=== PATIENT | female | born 1940 | race Caucasian/White ===

== ENCOUNTER → 2020-08-10 13:49 | Outpatient (CLI) | payer MEDICARE, OTHER, SELFPAY ==
[2020-08-10] MEDS: COVID-19 VACC #1, MRNA(MOD) 100 MCG/0.5 ML VIAL IM (14:08)
== END ==
PROVIDERS: Visit Provider Internal Medicine
DX: Z23 Encounter for immunization (principal)
CPT/HCPCS: 0011A; 91301

== ENCOUNTER → 2020-09-07 12:40 | Outpatient (CLI) | payer MEDICARE, OTHER, SELFPAY ==
[2020-09-07] MEDS: COVID-19 VACC #2, MRNA(MOD) 100 MCG/0.5 ML VIAL IM (12:48)
== END ==
PROVIDERS: Visit Provider Internal Medicine
DX: Z23 Encounter for immunization (principal)
CPT/HCPCS: 0012A; 91301

== ENCOUNTER 2021-06-08 10:50 | Emergency (ER) | payer MEDICARE, OTHER, SELFPAY ==
[2021-06-08] VITALS (27 sets, daily range): BP systolic 165–205; BP diastolic 77–105; PULSE 72–93; RESP 14–22; TEMP 36.4; O2SAT 90–99; BMI 28.3
--- NOTE | 2021-06-08 11:03 | DI.RAD.S_ITS ---
PROCEDURE: XR ANKLE LT 2V INDICATIONS: left ankle deformity TECHNIQUE: 2 views of the ankle were acquired. COMPARISON: [facility], , XR TIBIA FIBULA LT 2V, 06/08/2021, 11:07. FINDINGS: Bones: There is a prominently displaced, comminuted distal fibular fracture seen. There is a prominently displaced posterior malleolar fracture. An apparent impacted medial malleolar fracture can be seen. The talus is dislocated posteriorly and laterally in relation to the distal tibia. The talar dome itself demonstrates no ct abnormality. Generalized degenerative changes are seen, which are worst along the Lisfranc joint. Soft tissues: Associated soft tissue swelling is seen. IMPRESSION: Trimalleolar ankle fracture/dislocation. If it would be helpful for clinical management decision making in this patient with this given history, please consider a dedicated ankle CT for further evaluation. Dictated by: Ochoa Lake M.D. on 06/08/2021 at 10:32 Approved by: Ochoa Lake M.D. on 06/08/2021 at 10:33
--- NOTE | 2021-06-08 11:03 | DI.RAD.S_ITS ---
PROCEDURE: XR TIBIA FIBULA LT 2V INDICATIONS: left leg deformity TECHNIQUE: 2 views of the tibia and fibula were acquired. COMPARISON: [facility], CR, XR ANKLE LT 2V, 06/08/2021, 11:07. FINDINGS: Bones: There is a prominently displaced distal fibular fracture with comminution. Mild widening of the syndesmosis can be seen. There is a prominently displaced posterior malleolar fracture. An apparent impacted fracture of the medial malleolus can be seen. The talus is dislocated posteriorly and laterally in relation to the distal tibia. Soft tissues: Associated soft tissue swelling is seen distally. IMPRESSION: Trimalleolar fracture with dislocation. Dictated by: Ochoa Lake M.D. on 06/08/2021 at 10:30 Approved by: Ochoa Lake M.D. on 06/08/2021 at 10:32
--- NOTE | 2021-06-08 11:05 | ED.LOWEXIN ---
HPI - Extremity Injury (Lower) General Chief Complaint: Extremity Injury, Lower Stated Complaint: Slip, trip and fall Time Seen by Provider: 06/08/21 10:56 Source: patient and EMS Mode of arrival: EMS Limitations: no limitations History of Present Illness HPI Narrative: 80-year-old female comes emergency department after a trip and fall. Patient was walking her dog when she slid down hill. She states all her weight went onto her left leg and she has pain and obvious deformity. She denies any numbness or tingling she can wiggle her toes. She denies any other injury she denies striking her head, no neck or back pain. No chest pain or shortness of breath. No nausea or vomiting. No other GI or urinary symptoms. She cannot move that leg otherwise it is too painful. 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 She denies any daily medications. No known drug allergies. She denies tobacco, alcohol or illicit. She was on the ground for about 30 minutes outside until another individual walking their dog saw her and called for assistance. She arrives via EMS splinted with fentanyl and Phenergan given EN route. Related Data Previous Rx's Medication Instructions Recorded oxycodone 5 mg tablet 5 mg PO Q6H PRN #20 tab 06/08/21 Allergies Allergy/AdvReac Type Severity Reaction Status Date / Time No Known Drug Allergies Allergy Verified 06/08/21 10:59 Review of Systems Review of Systems ROS Unobtainable: All systems reviewed & are unremarkable except as noted in HPI and below Exam Narrative Exam Narrative: GEN: well nourished, well appearing female, alert and oriented x 3, patient appears to be in mild distress. HEENT: Atraumatic, pupils are equal round reactive to light, extraocular movements are intact, nares are clear. Throat is clear. HEART: Regular rate and rhythm without murmur, clicks, rubs. LUNGS:Lungs clear to auscultation, no wheezes, rales, crackles, chest moves symmetrically ABD:bowel sounds normal, soft, non-tender, no guarding, rebound, rigidity, no masses noted, no hepatosplenomegaly, pelvic rock negative. MSCL: Patient has obvious deformity with her left foot rotated 45? externally and a right angle. Patient does have palpable pulse dorsalis. She has sensation to light touch throughout the entire dorsum of the foot and on the underside. She has flexion extension of the toes. Patient denies any other bony tenderness at the knee, thigh or hip. And her right lower extremity and upper extremities are nontender with normal joint movement and sensation. NEURO:CN 2-12 intact, sensation normal Initial Vital Signs Initial Vital Signs: Vital Signs Temperature 97.6 F 06/08/21 10:50 Pulse Rate 86 06/08/21 10:50 Respiratory Rate 18 06/08/21 10:50 Blood Pressure 194/91 H 06/08/21 10:50 Pulse Oximetry 96 06/08/21 10:50 Procedures Orthopedic Joint Reduction Joint #1: Time of procedure: 12:21 Time Out Performed: Yes Side: left Joint Reduction Location: ankle Analgesia: procedural sedation Technique used: traction/counter-traction and direct manipulation Post-reduction neuro exam: intact Post-reduction vascular: intact Post Reduction X-Ray Obtained: Yes Splint Applied: Yes Patient Tolerated Procedure: Well Orthopedic Splinting/Casting Injury #1: Time of procedure: 12:22 Side: left Lower Extremity Injury Location: ankle Lower Extremity Immobilizer: posterior splint and stirrup splint Post splinting neuro exam: intact Post splinting vascular exam: intact Placed by: Provider () Procedural Sedation Time of procedure: 12:20 Consent signed: Yes Time out performed: Yes Indication: fracture/dislocation reduction ASA Class: II Mallampati Airway Classification: Class II Time of Last PO Intake: 07:00 Preparation: vest tailor applied, pulse oximeter, capnometry used, supplemental O2 applied, reversal agents at bedside, suction/airway equipment at bedside and IV secured IV Propofol dose (mg): 50 ED Sedation Level: Moderate (Concious) Patient Tolerated Procedure: Well Complications: none Scores GCS [place] coma scale eye opening: Spontaneous [place] coma scale verbal response: Orientated [place] coma scale motor response: Obey commands [place] coma scale total score: 15 Course Orders Ordered: ED Orders 06/08/21 11:03 XR ankle LT 2V Stat XR tibia fibula LT 2V Stat 06/08/21 11:06 COVID19 -Nasal swab/Pre-Proc Stat 06/08/21 12:19 XR ankle LT min 3V Stat Discontinued Medications Morphine Sulfate (Morphine 4 Mg/Ml Inj) 4 mg IV NOW ONE Stop: 06/08/21 11:05 Last Admin: 06/08/21 11:22 Dose: 4 mg Documented by: SUZE Morphine Sulfate (Morphine 4 Mg/Ml Inj) 4 mg IV NOW ONE Stop: 06/08/21 12:50 Last Admin: 06/08/21 13:18 Dose: Not Given Documented by: MARGARITA Ondansetron HCl (Ondansetron 4 Mg/2 Ml Inj) 4 mg IV NOW ONE Stop: 06/08/21 11:05 Last Admin: 06/08/21 11:22 Dose: 4 mg Documented by: SUZE Oxycodone/Acetaminophen (Oxycodone/Acetaminophen 5/325 Tablet) 2 tab PO NOW ONE Stop: 06/08/21 13:19 Last Admin: 06/08/21 13:21 Dose: 2 tab Documented by: MARGARITA Propofol (Propofol 200 Mg/20 Ml Vial) 75 mg 1 mg/kg (75 mg) IV NOW ONE Stop: 06/08/21 11:56 Last Admin: 06/08/21 12:07 Dose: 50 mg Documented by: MARGARITA Reevaluation(s) Reevaluation #1: Patient continues to have pain states it is somewhat improved but still quite present. Post reduction. Consultations Consultation #1: Dr. Canada, orthopedic surgery. Plan for follow-up this week with the clinic. Reviewed patient has been sedated reduced placed in a posterior and sugar-tong splint with plan for nonweightbearing. Time: 12:25 Vital Signs Vital signs: Vital Signs - 8 hr 06/08/21 10:50 06/08/21 10:56 06/08/21 11:00 Temperature 97.6 F Pulse Rate 86 79 77 Respiratory Rate 18 Blood Pressure 194/91 H Pulse Oximetry 96 96 96 06/08/21 11:05 06/08/21 11:06 06/08/21 11:10 Temperature Pulse Rate 79 78 73 Respiratory Rate Blood Pressure 194/91 H Pulse Oximetry 96 96 95 06/08/21 11:15 06/08/21 11:20 06/08/21 11:23 Temperature Pulse Rate 75 77 77 Respiratory Rate Blood Pressure 191/86 H Pulse Oximetry 95 94 93 06/08/21 11:25 06/08/21 11:30 06/08/21 11:35 Temperature Pulse Rate 78 72 72 Respiratory Rate Blood Pressure 165/79 H Pulse Oximetry 94 92 91 06/08/21 11:40 06/08/21 11:45 06/08/21 11:50 Temperature Pulse Rate 72 75 78 Respiratory Rate 19 20 Blood Pressure 167/77 H 173/85 H Pulse Oximetry 90 L 93 98 06/08/21 11:55 06/08/21 12:00 06/08/21 12:05 Temperature Pulse Rate 72 76 93 H Respiratory Rate 14 17 15 Blood Pressure 173/81 H 186/82 H 176/105 H Pulse Oximetry 98 98 97 06/08/21 12:10 06/08/21 12:15 06/08/21 12:20 Temperature Pulse Rate 78 77 76 Respiratory Rate 14 22 17 Blood Pressure 176/84 H 194/88 H 186/89 H Pulse Oximetry 98 98 97 06/08/21 12:25 06/08/21 12:30 06/08/21 12:35 Temperature Pulse Rate 85 78 82 Respiratory Rate 19 16 Blood Pressure 205/95 H 194/90 H 167/99 H Pulse Oximetry 96 96 98 06/08/21 12:40 06/08/21 12:45 06/08/21 12:50 Temperature Pulse Rate 82 82 142 H Respiratory Rate 20 17 17 Blood Pressure 198/92 H 184/84 H 198/98 H Pulse Oximetry 96 97 97 MDM - Extremity Injury (Lower) Lab Data Labs: Lab Results 06/08/21 Range/Units 11:06 SARS-CoV-2 (PCR) Negative (Negative) Point of Care Testing Test Results Not applicable Imaging Data Extremity x-ray #1: Radiologist's Impression: [address] [address] XRay Report Signed Patient: Aileen Jauregui MR#: [id number] : 1940 Acct:[id number] Age/Sex: 80 / F Date of Service: 06/08/21 Loc: ED Accession Number: [id number] ?? Procedure: XR ankle LT 2V Ordering Provider: Nellie Gregorio D.O. PROCEDURE:? XR ANKLE LT 2V ? INDICATIONS:? left ankle deformity ? TECHNIQUE:? 2 views of the ankle were acquired.? ? COMPARISON:? [facility], CR, XR TIBIA FIBULA LT 2V, 06/08/2021, 11:07. ? FINDINGS:? ? Bones:? There is a prominently displaced, comminuted distal fibular fracture seen.? There is a prominently displaced posterior malleolar fracture.? An apparent impacted medial malleolar fracture can be seen. ? The talus is dislocated posteriorly and laterally in relation to the distal tibia. ? The talar dome itself demonstrates no tc abnormality.? ? Generalized degenerative changes are seen, which are worst along the Lisfranc joint. ? Soft tissues:? Associated soft tissue swelling is seen. ? ? IMPRESSION:? Trimalleolar ankle fracture/dislocation. ? If it would be helpful for clinical management decision making in this patient with this given history, please consider a dedicated ankle CT for further evaluation. ? Dictated by: Ochoa Lake M.D. on 06/08/2021 at 10:32 ? ? Approved by: Ochoa Lake M.D. on 06/08/2021 at 10:33?? Extremity x-ray #2: Radiologist's Impression: [address] [address] XRay Report Signed Patient: Aileen Jauregui MR#: [id number] : 1940 Acct:[id number] Age/Sex: 80 / F Date of Service: 06/08/21 Loc: ED Accession Number: [id number] ?? Procedure: XR tibia fibula LT 2V Ordering Provider: Nellie Gregorio D.O. PROCEDURE:? XR TIBIA FIBULA LT 2V ? INDICATIONS:? left leg deformity ? TECHNIQUE:? 2 views of the tibia and fibula were acquired.? ? COMPARISON:? [facility], [place], XR ANKLE LT 2V, 06/08/2021, 11:07. ? FINDINGS:? ? Bones:? There is a prominently displaced distal fibular fracture with comminution.? Mild widening of the syndesmosis can be seen.? There is a prominently displaced posterior malleolar fracture.? An apparent impacted fracture of the medial malleolus can be seen. ? The talus is dislocated posteriorly and laterally in relation to the distal tibia. ? Soft tissues:? Associated soft tissue swelling is seen distally. ? ? IMPRESSION:? Trimalleolar fracture with dislocation. ? ? Dictated by: Ochoa Lake M.D. on 06/08/2021 at 10:30 ? ? Approved by: Ochoa Lake M.D. on 06/08/2021 at 10:32?? Extremity x-ray #3: Radiologist's Impression: [address] [address] XRay Report Signed Patient: Aileen Jauregui MR#: [id number] : 1940 Acct:[id number] Age/Sex: 80 / F Date of Service: 06/08/21 Loc: ED Accession Number: [id number] ?? Procedure: XR ankle LT min 3V Ordering Provider: Nellie Gregorio D.O. PROCEDURE:? XR ANKLE LT MIN 3V ? INDICATIONS:? post reduc ? TECHNIQUE:? 3 views of the ankle were acquired.? ? COMPARISON:? [facility], CR, XR ANKLE LT 2V, 06/08/2021, 11:07. ? FINDINGS:? ? Bones:? On this post reduction view, there is improved anatomic alignment of the trimalleolar fracture.? A dislocation is no longer seen. ? The overlying casting material limits evaluation of fine detail. ? Degenerative changes are seen, which are worst along the Lisfranc joint.? Toe alignment abnormalities are seen.? ? Soft tissues:? Soft tissue swelling is seen. ? ? IMPRESSION:? Appropriate reduction, with improved anatomic alignment of the trimalleolar fracture. ? ? ? Dictated by: Ochoa Lake M.D. on 06/08/2021 at 11:30 ? ? Approved by: Ochoa Lake M.D. on 06/08/2021 at 11:31?? [facility] Narrative Medical decision making narrative: This is a 80-year-old female with slip and fall without other trauma. Patient had closed trimalleolar fracture with dislocation. Patient was neurovascularly intact pre and post reduction. Her films are significantly improved and she is much better alignment. Patient was placed in a splint by myself. She was given walker. P.o. pain medications as well as discussed that she can use her optimistic for wheelchair that she can borrow. Referral to Orthopedic surgery and the recommendations were given. All questions answered. Discharge Plan Departure Patient Disposition: Home Clinical Impression: Closed trimalleolar fracture, Dislocation of ankle, Fall Instructions: DI for Ankle Fracture Activity Restrictions/Additional Instructions: Follow-up with orthopedic surgery. Call for an appointment. They plan to see you this week. They are closed on Thursday. You may take Tylenol up to a 1000 mg every 8 hours. If in adequate you can add 1-2 tablets of narcotic pain medication every 6 hours. This medication can make you sleepy do not drive, perform hazardous activities or make any major decisions while taking it. This medication will make you constipated please take a stool softener once to twice daily until stools are soft and regular. Prescription sent to [facility] in [place]. Splint Care: Keep splint clean and dry. Elevated affected body part to decrease swelling. OK to use ice pack on the affected body part. Use for 15-20 minutes each time, for 5-6x per day. If you develop worsening pain, numbness, tingling, discoloration of the affected body part, loosen the splint by loosening the JEREMY wrap, and either see your doctor for an urgent re-assessment, or return to the Emergency Department. Return to the Emergency Department for any new or worsening symptoms. Prescriptions: New oxycodone 5 mg tablet 5 mg PO Q6H PRN (Reason: pain) Qty: 20 0RF Rx Instructions: You may take 1-2 tabs every 6 hours as needed for pain. Referrals: Chalo Canada MD [Physician] -
[2021-06-08] MEDS: MORPHINE 4 MG/ML INJ IV (11:22)
[2021-06-08] MEDS: ONDANSETRON 4 MG/2 ML INJ IV (11:22)
[2021-06-08 11:44] LABS: COVID19 -Nasal RAPID Negative (Negative)
[2021-06-08] MEDS: propofoL 200 MG/20 ML VIAL 75 MG IV (12:07)
--- NOTE | 2021-06-08 12:19 | DI.RAD.S_ITS ---
PROCEDURE: XR ANKLE LT MIN 3V INDICATIONS: post reduc TECHNIQUE: 3 views of the ankle were acquired. COMPARISON: [facility], , XR ANKLE LT 2V, 06/08/2021, 11:07. FINDINGS: Bones: On this post reduction view, there is improved anatomic alignment of the trimalleolar fracture. A dislocation is no longer seen. The overlying casting material limits evaluation of fine detail. Degenerative changes are seen, which are worst along the Lisfranc joint. Toe alignment abnormalities are seen. Soft tissues: Soft tissue swelling is seen. IMPRESSION: Appropriate reduction, with improved anatomic alignment of the trimalleolar fracture. Dictated by: Ochoa Lake M.D. on 06/08/2021 at 11:30 Approved by: Ochoa Lake M.D. on 06/08/2021 at 11:31
--- NOTE | 2021-06-08 12:36 | RT ---
At bedside for PRS for ankle. Pt rashard well, no distress noted and on 3 lpm nc with etco2 39-41. Bag mask unit at [facility] with suction on and functional. Released by Rn pt awake and on room air
[2021-06-08] MEDS: OXYCODONE/ACETAMINOPHEN 5/325 TABLET 2 TAB PO (13:21)
--- NOTE | 2021-06-08 15:11 | PC.NURSE ---
walker teaching and transfer instructions.
== END 2021-06-08 13:30 | disposition home or self-care (01) ==
PROVIDERS: Emergency Provider Emergency Medicine
DX: S82.852A Displaced trimalleolar fracture of left lower leg, initial encounter for closed fracture (principal); W01.0XXA Fall on same level from slipping, tripping and stumbling without subsequent striking against object, initial encounter; Z20.822 Contact with and (suspected) exposure to COVID-19; Y93.K1 Activity, walking an animal; Y92.828 Other wilderness area as the place of occurrence of the external cause
CPT/HCPCS: 29515; 36415; 73590; 73600; 73610; 87635; 99285; C9803; J2270; J2405; J2704

== ENCOUNTER 2021-06-11 09:37 | Emergency (ER) | payer MEDICARE, OTHER, SELFPAY ==
[2021-06-11 10:00] VITALS: BP 188/84; PULSE 80; RESP 16; O2SAT 96; BMI 28.2
--- NOTE | 2021-06-11 10:22 | ED_ITS ---
HPI - Extremity Injury (Lower) General Chief Complaint: Extremity Injury, Lower Stated Complaint: Twisted ankle Time Seen by Provider: 06/11/21 09:46 Source: patient and family Mode of arrival: Wheelchair History of Present Illness HPI Narrative: Patient is an 80-year-old female. She was seen here in the emergency department a couple days ago with a left ankle fracture. Was placed in a splint. Discharged home with follow-up with Orthopedics. Since that time she states that she continues to have discomfort. She feels like her lower extremity swelling. She has been taking the pain medication as directed. She is yet to follow-up with orthopedics. Has not contacted Orthopedics yet. She does not have a primary provider. She also feels like the splint is too high up the back of her leg causing her discomfort with bending her knee. Related Data Previous Rx's Medication Instructions Recorded oxycodone 5 mg tablet 5 mg PO Q6H PRN #20 tab 06/08/21 Allergies Allergy/AdvReac Type Severity Reaction Status Date / Time No Known Drug Allergies Allergy Verified 06/08/21 10:59 Review of Systems Constitutional Constitutional: Denies headache(s) ENT Ears, Nose, Mouth, and Throat: Denies headache(s) Cardiovascular Cardiovascular: Reports system reviewed and no additional complaints, except as documented Respiratory Respiratory: Reports system reviewed and no additional complaints, except as documented Gastrointestinal Gastrointestinal: Reports system reviewed and no additional complaints, except as documented Musculoskeletal Musculoskeletal: Reports system reviewed and no additional complaints, except as documented and Reports as per HPI Integumentary/Breasts Skin/Breast: Reports system reviewed and no additional complaints, except as documented Neurologic Neurologic: Denies headache(s) Hematologic/Lymphatic On Anticoagulants: No Patient History Medical History Closed trimalleolar fracture Social History Smoking Status: Never smoker Smoking Status: Never smoker Substance Use Type: does not use Exam Initial Vital Signs Initial Vital Signs: Vital Signs Pulse Rate 80 06/11/21 10:00 Respiratory Rate 16 06/11/21 10:00 Blood Pressure 188/84 H 06/11/21 10:00 Pulse Oximetry 96 06/11/21 10:00 HENMT Head: normal to inspection and normocephalic Resp Effort & Inspection: normal respiratory effort Cardio Rate: regular rate GI Inspection: normal to inspection Procedures Orthopedic Splinting/Casting Injury #1: Side: left Lower Extremity Injury Location: ankle Lower Extremity Immobilizer: posterior splint and stirrup splint Post splinting neuro exam: intact Post splinting vascular exam: intact Placed by: Provider Course Vital Signs Vital signs: Vital Signs - 8 hr 06/11/21 10:00 Pulse Rate 80 Respiratory Rate 16 Blood Pressure 188/84 H Pulse Oximetry 96 MDM - Extremity Injury (Lower) MDM Narrative Medical decision making narrative: The splint that was placed here initially in the emergency department was removed she states that the pressure and discomfort did improve somewhat. After. Time another splint was replaced. No further x-rays needed. Low suspicion for compartment syndrome based on her exam. It appears that the patient does have some difficulty navigating the healthcare system. She has [employer] insurance. Does not have a specific primary doctor. Has not followed up with Orthopedics. She was concerned she was not have to drive to [place] and to follow-up with orthopedics and she did want to do that. She was told that they do have a office here locally. Informed her that she needed to contact [facility] has she is assigned to a primary provider and she will most likely need a referral to go see orthopedics. No further workup needed emergency department. She was instructed to keep her foot elevated as this will help with the swelling. She has pain medication at home. Discharge Plan Departure Patient Disposition: Home Clinical Impression: Ankle fracture Instructions: How to Take Care of Your Splint Activity Restrictions/Additional Instructions: The splint that was placed today does need to stay on and stay clean and stay dry. You do need to treat it like a cast. You should not be walking on your left ankle because of the underlying fracture. Please use the information that you were given to contact [facility]. You are going to need a follow-up with Orthopedics and most likely will require surgery for definitive treatment of the injury. Return to the emergency department for any new or worsening symptoms. Prescriptions: No Action oxycodone 5 mg tablet 5 mg PO Q6H PRN (Reason: pain) Qty: 20 0RF Rx Instructions: You may take 1-2 tabs every 6 hours as needed for pain.
[2021-06-11 10:53] VITALS: PULSE 75; O2SAT 96
[2021-06-11 11:00] VITALS: PULSE 76; O2SAT 96
[2021-06-11 11:26] VITALS: PULSE 90; O2SAT 94
[2021-06-11 12:54] VITALS: BP 192/86; PULSE 93; O2SAT 94
== END 2021-06-11 12:54 | disposition home or self-care (01) ==
PROVIDERS: Emergency Provider Emergency Medicine
DX: S82.892A Other fracture of left lower leg, initial encounter for closed fracture (principal); X58.XXXA Exposure to other specified factors, initial encounter
CPT/HCPCS: 29505; 99282

== ENCOUNTER → 2021-06-13 13:18 | Outpatient (CLI) | payer MEDICARE, OTHER, SELFPAY ==
--- NOTE | 2021-06-13 | DI.CT.S_ITS ---
PROCEDURE: CT LE LT W CON INDICATIONS: Broken LEFT Ankle TECHNIQUE: Noncontrast 1-1.5 mm axial sections acquired from above the tibiotalar joint to the bottom of the calcaneus, with coronal and sagittal reformats. COMPARISON: [facility], CR, XR ANKLE LT MIN 3V, 06/08/2021, 12:15. FINDINGS: Image quality: Excellent. Bones: Trimalleolar fracture of the ankle with mild comminution of the proximal fibula and intra-articular bodies. No overt callus formation is appreciated. No substantial widening of the ankle mortise. At least moderate degenerative changes in the midfoot with fibrocystic change, osteophytosis, and joint space loss. Soft tissues: Diffuse soft tissue edema. Small tibiotalar joint effusion. Although suboptimally visualized, the Achilles tendon appears intact. IMPRESSION: Trimalleolar fracture of the ankle. Dictated by: Froylan Velazquez M.D. on 06/14/2021 at 8:43 Approved by: Froylan Velazquez M.D. on 06/14/2021 at 8:47
== END ==
PROVIDERS: Referring Provider Orthopaedic Surgery Foot and Ankle Surgery; Visit Provider Orthopaedic Surgery Foot and Ankle Surgery
DX: S82.852A Displaced trimalleolar fracture of left lower leg, initial encounter for closed fracture (principal); Z20.822 Contact with and (suspected) exposure to COVID-19; X58.XXXA Exposure to other specified factors, initial encounter
CPT/HCPCS: 73700; 87635; C9803

== ENCOUNTER → 2021-06-13 15:31 | Outpatient (CLI) | payer MEDICARE, OTHER, SELFPAY ==
[2021-06-13 15:52] LABS: COVID19 -Nasal RAPID Negative (Negative)
== END ==
PROVIDERS: Visit Provider Family Medicine Sleep Medicine
DX: Z20.822 Contact with and (suspected) exposure to COVID-19 (principal)
CPT/HCPCS: 87635

== ENCOUNTER 2021-06-15 08:45 | Observation (INO) | payer MEDICARE, OTHER, SELFPAY ==
[2021-06-14] VITALS (10 sets, daily range): BP systolic 133–181; BP diastolic 64–86; PULSE 74–97; RESP 13–21; TEMP 36.4–37.2; O2SAT 94–98; BMI 26.6
--- NOTE | 2021-06-14 07:31 | PM.PREOP ---
Pre-operative Note COVID-19 Criteria for continued procedure: Possibility delay results in more complex future surgery or treatment, Continuing or worsening of significant or severe pain, Deterioration of the patient's condition or overall health and Delay expected to result in less-positive ultimate med/surg outcome Interval Note History & Physical reviewed/Exam performed by Physician: Yes Changes to H&P: No
--- NOTE | 2021-06-14 07:36 | PM.HP.1 ---
History of Present Illness History of Present Illness Date Patient Seen: 06/14/21 Time Patient Seen: 07:20 Chief complaint: SDC Narrative: 80-year-old female slipped and fell 2 days ago resulting in a left ankle fracture dislocation. Patient was seen in the emergency room where the ankle was reduced she was placed into a splint. Patient denies any other injuries from fall. Patient History Medical History Closed trimalleolar fracture Surgical History History of mastectomy Family & Social History Tobacco & Substance use: Smoking Status Never smoker alcohol intake never Substance Use Type does not use Meds Home Medications and Allergies Home Medications Medication Instructions Recorded Confirmed Type oxycodone 5 mg tablet 5 mg PO Q6H PRN #20 tab 06/08/21 06/13/21 Rx Allergies Allergy/AdvReac Type Severity Reaction Status Date / Time No Known Drug Allergies Allergy Verified 06/08/21 10:59 Exam Vital Signs (past 8 hours): - 06/14/21 07:05 Temperature 98.6 F Pulse Rate 90 Respiratory Rate 16 Blood Pressure 181/86 H Pulse Oximetry 98 Oxygen Delivery Method Room Air Narrative Exam Narrative: Patient's left lower extremity is in a splint. No sign of any bruising or swelling around the knee. No sign of any instability to the knee. Normal range of motion. Nontender to palpation to the upper leg no pain or discomfort with range of motion the left hip. Right lower extremity is also free of any injuries or deformities. Full range of motion of the right lower extremity. Nontender to palpation throughout. Assessment & Plan Assessment & Plan narrative: 80-year-old female with a left ankle fracture dislocation involving the medial lateral and posterior malleolus. Based on the amount of displacement as well as the dislocation was something that will require surgical treatment. I went over the risk and limitations associated with operative versus non operative treatment. Also discussed risk limitations associated with the surgery. All the patient's questions and concerns were answered to her full satisfaction and a consent form was freely obtained. The risk, benefits, alternatives, possible complications, operative course, and postop outcomes were discussed. Complications including but not limiting to bleeding, infection, fracture, nerve injury, continued pain postoperatively or instability postoperatively were discussed in detail. Medical complications including but not limited to deep venous thrombosis event, anesthesia complications with excessive bleeding, vascular events or cardiac events and other possible complications were discussed in detail. Need for postoperative rehabilitation and anticipated hospital stay and clinical course were discussed in detail. Patient acknowledges understanding and elects to proceed with surgery. Time Spent With Patient Critical Care time: I spent a total of [] minutes of critical care time on this patient's care today; this time is exclusive of procedural time.
--- NOTE | 2021-06-14 08:33 | SUR.PREOP ---
Block start time 0810[] after time out . Monitoring initiated and maintained throughout procedure. Oxygen and medications given per anesthesiologist instructions.injection time 0820 Patient remained stable throughout procedure, no adverse reactions noted. Block end time [0828].
[2021-06-14] MEDS: CEFAZOLIN 2 GM/20 ML SYRINGE IV (08:46)
--- NOTE | 2021-06-14 09:10 | SUR.OPER ---
Supine on padded OR bed, head on pillow, arms secured on padded arm boards at <90 degrees abduction, legs uncrossed, safety belt at abdomen, tape over blanket over right lower leg, gel pad surrounding right heel. Left leg under control of surgeon. Bump under left hip during fixation of lateral portion of fracture.
[2021-06-14] MEDS: BUPIVACAINE 0.5% (PF) 30 ML, EPINEPHrine 0.15 MG INJ (10:32)
--- NOTE | 2021-06-14 11:11 | PM.OP.1 ---
Operative Date/Time/Diagnoses Date of procedure: 06/14/21 Time of procedure: 09:00 Pre-op diagnosis: Trimalleolar ankle fracture left, Post-op diagnosis: same Procedure & Clinicians Procedure: Open reduction internal fixation of the medial, lateral, and posterior malleolus. Open reduction internal fixation of the anterior lateral aspect of the distal tibia Same procedure as scheduled: Yes Indications: Fracture dislocation of the left ankle with multiple fracture fragments Surgeon: Chalo Pathak Yes if Unassisted: Yes Anesthesia Type: General and Peripheral nerve block Operative Notes Findings: Displaced intra-articular fracture involving the posterior malleolus. Minimally displaced fracture involving the medial malleolus. Displaced comminuted fracture involving the lateral malleolus was extension into the fibular shaft. Displaced fragment involving the anterior lateral aspect of the distal tibia. Unstable tibial talar joint. Closure Type: primary Applied: implant(s) (Arthrex 1/3 tubular plate, partially-threaded cannulated cancellous screw with washer, distal fibular plate 8 hole) Estimated Blood Loss (mL): 30 Tourniquet time (min): 115 Procedure in detail: On date of service, patient was met in the holding area where her operative site was signed and witnessed by the OR staff. Surgeries once again discussed with the patient and any remaining questions or concerns she had were answered fully. Patient was taken back to the operating theater. Placed on the operating table in a supine position. Great care was taken to ensure that all bony prominences were appropriately padded. Well-padded tourniquet was placed up along the left leg. Time-out was performed verifying patient's name, procedure, and operative site. Left leg was prepped and draped in normal sterile fashion. Esmarch was used to exsanguinate the limb and the tourniquet was turned up to 250 mm of mercury. The restarted with the medial aspect of the ankle. The posterior medial approach was performed. Incision was made mcfp between the posterior aspect of the medial malleolus and the Achilles tendon. Ten blade was used to incise the skin and fascial tissue. Electrocautery was used to achieve hemostasis. Pickups and Metzenbaum scissors were used to bluntly dissect down and till the posterior aspect of the medial S was visualized. Flexor hallucis longus and the rest of the tendons were retracted posteriorly given his good visualization of the posterior aspect of distal tibia. Patient had an intra-articular extension in this intra-articular fragment was reduced. Once this fragment as well as the rest of the posterior fragment was reduced a 1/3 tubular plate was placed and held provisionally. C-arm was brought in to verify overall reduction. We were able to use a 1/3 tubular plate to reduce and fixate the posterior malleolar fragment as well as provide fixation to the medial malleolar fragment. Screws were placed and x-rays were obtained. Once we were satisfied with the reduction and plate and screw placement the wound was copiously irrigated then closed in the layered fashion. Next, bump was placed underneath the left hip internally rotating the leg to give us good access to the lateral aspect of the ankle. Ten blade was used to incise through skin and fascial tissue. An incision was made starting at the tip of the distal fibula and extending proximally. Deep knife was used to continue sharp dissection down to the periosteum of the distal fibula. Periosteal tissue was dissected off the distal fibula giving us good visualization of the fracture. A curette was used to debride the fracture site removing any interposed soft tissue. Patient also had a fracture involving the anterior lateral aspect of the distal tibia. Then the fracture site was copiously irrigated. Next, 2 point reduction forceps were used to reduce the fracture. C-arm was brought in to verify reduction. Once we were satisfied with the reduction a plate was placed and held provisionally with a 2 point reduction forceps. Next, distal fibular plate was placed and held provisionally. This was then secured both proximal and distal to the fracture the combination of locking and nonlocking screws. The plate and screws provided strong overall fixation and stabilization of the fracture. X-rays were obtained verifying reduction of the lateral malleolus and extension into the fibular shaft. The ankle was stressed and there was no longer any widening of the mortise and the tip of the talar joint was now stabilized with fixation of both the medial posterior awl and lateral aspects of the ankle. We then turned our attention to the small fragment involving the anterior lateral aspect of the distal tibia. This was reduced and held with a K-wire. Next a partially-threaded cancellous screw with a washer was placed to provide fixation to this fragment. This provided secure fixation and final x-rays were obtained verifying good overall reduction of 4 different fracture sites as well as good overall reduction of the tibiotalar joint. The wound was then copiously irrigated. It was closed in layered fashion. Patient's leg was cleaned, dried, and dressed and a splint was placed. Patient was extubated and taken to the PACU in stable condition. Complications: none Post-operative Condition: stable Disposition: PACU Plan for aftercare: Patient will need to be nonweightbearing to the left lower extremity for 6 weeks.
--- NOTE | 2021-06-14 11:30 | SUR.PHASEI ---
Pt arrived, very sleepy, follows commands, airway self maintained, now more awake, denies pain/discomfort nausea, still sleepy. L leg elevated and ice placed behind knee.
[2021-06-14] MEDS: OXYCODONE IR 5 MG TABLET PO ×3 (11:52→21:25)
[2021-06-14] MEDS: ACETAMINOPHEN 325 MG TABLET 650 MG PO (11:52)
--- NOTE | 2021-06-14 12:00 | SUR.PHASEI ---
Medicated for pain with oxycodone and tylenol after applesauce tolerated.
--- NOTE | 2021-06-14 14:00 | PT.IIE ---
Current Diagnoses Other fracture of left lower leg, initial encounter for closed fracture (06/14/21) Other fracture of unspecified lower leg, initial encounter for closed fracture (06/14/21) Sprain of tibiofibular ligament of left ankle, initial encounter (06/14/21) Surgery Performed Operation Date: 06/14/21 07:45 Actual Procedures p ORIF trimalleolar ankle fx & fixation of syndesmosis(Left) - Chalo Canada MD Medical History (Last Reviewed 06/14/21 @ 07:38 by Chalo Canada MD) Closed trimalleolar fracture Physical Therapy Inpatient Evaluation/Re-Eval M1 PT/OT-IP Prior Functional Status Start: 06/14/21 15:23 Freq: NEEDED Status: Active Protocol: Document 06/14/21 14:00 AB (Rec: 06/14/21 15:58 AB [email or web address]) Medical Review Prior Functional Status Medical History Reviewed Yes Communication able to make needs known Mobility and Gait pt stated that she had her ankle fx ~ 1 week ago and was modified independent with mobility on a w/c level and transfers only when needed using a FWW. Prior to fx, pt was independent with all mobilities and ambulation without AD Social History Household Members spouse Living Arrangements House Number of Floors (Floors) Two Floors Number of Stairs To Enter/Railing? pt stays on the first leve has 2 steps to enter without rails; another way into the house is an ~ 8 inch step up to the deck Home Environment Standard Height Toilet,Walk in Shower Home Equipment Front Wheel Walker,Manual Wheelchair Additional Social History Comment pt stated that spouse has dementia and has limited ability to assist her and can only do one thing at a time M2 PT-IP Current Condition Start: 06/14/21 15:23 Freq: NEEDED Status: Active Protocol: Document 06/14/21 14:00 AB (Rec: 06/14/21 15:58 AB [email or web address]) Physical Therapy Current Condition Current Condition Evaluation Date 06/14/21 Treatment Diagnosis L ankle fx s/p ORIF; difficulty in walking Onset Date 06/14/21 M3 PT-IP Subjective Start: 06/14/21 15:23 Freq: NEEDED Status: Active Protocol: Document 06/14/21 14:00 AB (Rec: 06/14/21 15:58 AB [email or web address]) Subjective Physical Therapy Visit Type Type Initial Evaluation Visit Start Time 14:00 Visit Stop Time 15:15 Total Visit Minutes 75 Number of ORNAMENTAL BRONZE WORKER Visits 0 Physical Therapy Visit Comments Patient Comments agreeable to do PT Therapy Pain Assessment Pain Present Pain Present Denied Pain M4 PT-IP Mobility and Gait Start: 06/14/21 15:23 Freq: NEEDED Status: Active Protocol: Document 06/14/21 14:00 AB (Rec: 06/14/21 15:58 [email or web address]) PT-Transfer Assessment Sit to and From Stand Sit to and from Stand Minimal Assistance,Moderate Assistance,1 Person Assistance ,Use of Upper Extremities Equipment Transfer Assistive Device Front Wheeled Walker Orthotic/Prosthetic Devices or Brace: Yes Transfers Transfer Destination Chair,Wheelchair Transfer Technique Stand Step Pivot Transfer Ability Level of Assist Minimal Assistance,Moderate Assistance,1 Person Assistance ,Use of Upper Extremities Comments Mobility Comments pt using the toilet per nurse. Pt agreed to do PT. pt completed sit to stand from the toilet using grab bar mod A and cues. PT took over pt for PT evi. Pt informed PT that she had her ankle fx ~ 1 week ago and was able to transfer using FWW but has been mobilizing mainly using a w/c. pt stated that she was able to go up her step using a FWW and her spouse assists her but she is stronger then and not she feels weaker. educated pt regarding safety. demonstrated transfers using FWW. sit to stand from the w/ c min to mod A and cues and step pivot transfer using FWW to the chair. pt requiring mod A with sit to stand from a regular height chair. completed step transfer using FWW back to w/c. pt presents with increase unsteadiness with slight LOB backwards during transfer back to w/c requiring mod A and cues. pt initially said that she has 2 steps to enter the house without rails but then after much inquiry, stated that there is another way in but with gravel ground and an 8 inch step to the deck. pt agreed to do stair climbing with PT. Asked pt if there is another person who can assist her aside from her spouse. Pt stated that her neighbor might be able to assist but not much since her neighbor has shoulder problems. transported pt up to acute floor for stair training. Ned pt's spouse in waiting area and agreed to do caregiver training. educated pt on how to go up/down platform step using FWW. pt attempted and unable to complete up/down step using a FWW. educated spouse on how to assist pt up/down step pushing pt up on a w/c. spouse attempted to bring pt up on platform step using FWW but unable to complete. spouse also has dementia and can only follow one step tasks. assisted pt back down to PACU floor. educated pt on current mobility level, equipment needs. informed pt that she will need a raised toilet seat with handles, ramp to enter the house and needs another person assist her at home aside from her spouse. informed nurse regarding pt's mobility level and will not be safe to d/c home at this time . nurse informed that they will inform the doctor. Gait Assessment Gait Gait Assistance Required: Moderate Assistance Assistive Devices Assistive Device Front Wheeled Walker Comments Gait Comments able to take steps during transfers using fWW mod A Stair Climbing Assessment Comments Stair Climbing Comments unable. pls refer to mobility section for details PT-Balance Assessment Sitting Balance and Reactions Static Sitting Balance Ability Good Dynamic Sitting Balance Ability Good Standing Balance and Reactions Static Standing Balance Ability Fair Dynamic Standing Balance Ability Poor Device Used FWW M5 PT-IP Objective Assessments Start: 06/14/21 15:23 Freq: NEEDED Status: Active Protocol: Document 06/14/21 14:00 AB (Rec: 06/14/21 15:58 [email or web address]) Orientation Orientation/Cognition Level of Alertness Alert Orientation Name,Place,Situation Language Function Ability No Deficits Noted Safety Awareness Understands Safety Issues Memory Description No Deficits Noted Gross Range of Motion Lower Extremity ROM Impairments L ankle not tested: soft splint on Strength Lower Extremity Strength Assessment Left Impaired Hip 3+/5 Knee 3+/5 Ankle n/t Coordination Assessment Gross Coordination Gross Coordination WNL Sensation Assessment Sensation Gross Sensation Left LE Impaired Sensation Description Numbness Comments Sensation Comments still has numbness on L foot/ ankle Muscle Tone Muscle Tone WNL Yes M6 PT-IP Treatment Start: 06/14/21 15:23 Freq: NEEDED Status: Active Protocol: Document 06/14/21 14:00 AB (Rec: 06/14/21 15:58 AB [email or web address]) Physical Therapy Treatment Education Education Provided Precautions,Weight Bearing Status,Safety M7 PT-IP Assessment and Plan Start: 02/25/22 15:23 Freq: NEEDED Status: Active Protocol: Document 06/14/21 14:00 AB (Rec: 06/14/21 15:58 AB [id number]) PT Summary Assessment and Plan Potential Rehabilitation Potential Fair Status of Condition at Evaluation Evolving Summary Impairments Pain,ROM,Strength,Balance, Coordination,Sensation,Tone, Cognition,Bed Mobility, Transfers,Gait,Activity Tolerance Assessment Summary Pt requiring min to mod A with transfers using FWW and cues for safety with LOB x 1 during transfer requiring mod A for steadiness. pt lives with spouse but spouse has limitations to assist pt due to his dementia. pt unable to complete stair climbing to be able to get into her house despite spouse's assistance and caregiver training provided by PT. Pt is not safe to go home at this time. informed pt regarding equipement needs and needing more assistance at home. will continue to assess progress but at this time may require SNF rehab. Goals Bed Mobility Goal Independent Transfer Goal Independent,Front Wheeled Walker Gait Goal Independent,Front Wheel Walker Gait Distance 25 Other Goals up/down 1 step using FWW CGA Days to Meet Goals 10 Frequency of Treatment Frequency Of Treatment Once a Day Treatment Plan Physical Therapy Treatment Plan Bed Mobility Training,Transfer Training,Gait Training, Therapeutic Exercise,Balance Retraining,Post Op Education, Discharge Planning,Hot or Cold Pack,Neuromuscular Re-ed, Coordination Retraining,Manual Therapy Weight Bearing Status Weight Bearing Status Non-Weight Bearing Allowed Weight Bearing Amount (enter % LLE NWB or #) (%) Recommendations To Nursing Amount of Assist Needed 1 Person Assist Discharge Recommendations PT Discharge Recommendations Home with 10/11 Assist Available,Home Health,SNF Rehab,Home vs SNF Transportation Needs at Discharge Private Vehicle,Wheelchair/ Cabulance
--- NOTE | 2021-06-14 16:45 | SUR.PREOP ---
Pt. was unable ambulate safely in Phase 2 pacu. P.T. eval was done and the decision was made to admit pt. and get social services counselor and home pt. involved. see Physical therapy eval . report callled to floor R.N. and pt. transferred to 202 in stable condition.
[2021-06-14] MEDS: CEFAZOLIN 1 GM VIAL IV (18:41)
--- NOTE | 2021-06-14 18:55 | PC.NURSE ---
Addendum entered by Mary oMore R.N. 06/14/21 19:01: Continuous monitoring. VSS, afebrile on RA. Plan for PT/OT and SW consults in a.m. Original Note: Pt A&O x3, VSS, transported via bed from PACU this afternoon. She denies pain intially to LLE. She is NWB to LLE, and requiring assistance to transport. Soft cast in place C/D/I +CMS to toes. Pt tolerates dinner well. Afterwards reporting 5/10 pain to LLE, medicated with PRN oxycodone.
[2021-06-14] MEDS: ACETAMINOPHEN 325 MG TABLET 975 MG PO (21:25)
[2021-06-14] MEDS: ASPIRIN EC 81 MG TABLET PO (21:26)
[2021-06-14] MEDS: DOCUSATE 100 MG CAPSULE PO (21:26)
[2021-06-15] MEDS: CEFAZOLIN 1 GM VIAL IV (03:55)
[2021-06-15] MEDS: OXYCODONE IR 5 MG TABLET PO ×2 (04:30→08:08)
[2021-06-15 04:46] VITALS: BP 156/74; PULSE 87; RESP 16; TEMP 36.8; O2SAT 97
[2021-06-15 05:20] LABS: Hematocrit 36.6 % (36-46); Mean Corpuscular HGB Conc 32.9 % (30-36); Mean Corpuscular Hemoglobin 29.6 PG (26-34); Mean Corpuscular Volume 90.1 fL (80-100); Platelet Count 221 X10^3/uL (150-400); Red Blood Cell Count 4.06 X10^6/uL (4.0-5.2); Red Cell Distribution Width 14.5 % (11.6-14.8); White Blood Cell Count 12.3 X10^3/uL (4.5-11.0)
[2021-06-15 07:30] VITALS: BP 150/74; PULSE 80; RESP 18; TEMP 37; O2SAT 96
[2021-06-15] MEDS: DOCUSATE 100 MG CAPSULE PO (08:04)
[2021-06-15] MEDS: ASPIRIN EC 81 MG TABLET PO (08:04)
[2021-06-15] MEDS: ACETAMINOPHEN 325 MG TABLET 975 MG PO (08:05)
[2021-06-15] MEDS: polyethylene glycoL 3350 17 GM POWD.PACK PO (08:06)
--- NOTE | 2021-06-15 09:38 | P.DS_ITS ---
History of Present Illness History of Present Illness Date Patient Seen: 06/15/21 Time Patient Seen: 09:39 Chief complaint: left ankle pain s/p L Ankle ORIF Narrative: The patient is complaining of moderate left ankle pain this morning. Denies numbness/tingling, SOB or chest pain, F/C/NS. She is working with physical therapy and is nonweight bearing on the left ankle. She has 2 steps to get into her house. Her spouse has moderate-seevere dementia, and she is his primary caregiver. He is not able to help her in her recovery from surgery, unfortunately. Discharge Providers Provider Discharge Date: 06/15/21 Consults: 06/14/21 07:41 Consult to Anesthesiology Routine Comment: Consulting Provider: Anesthesiologist Reason for consultation: Post operative pain managment 06/14/21 12:34 Consult to Physical Therapy Evaluate & Treat Comment: pt. is in out pt. recovery after surgery . Physician Instructions: Evaluate and Treat 06/14/21 15:20 Consult to Discharge Planning Routine Comment: nonWB, has severe dementia Consult to Physical Therapy Evaluate & Treat Comment: nonWeight bearing Physician Instructions: Evaluate and Treat Discharge provider: Dixie Gillespie PA-C Summary Hospital Course Discharge Diagnosis: Trimalleolar ankle fracture left Hospital Course: Operative Date/Time/Diagnoses Date of procedure: 06/14/21 Time of procedure: 09:00 Procedure & Clinicians Procedure: Open reduction internal fixation of the medial, lateral, and posterior mall eolus.? Open reduction internal fixation of the anterior lateral aspect of the distal tibia Same procedure as scheduled: Yes Indications: Fracture dislocation of the left ankle with multiple fracture fragments Surgeon: Chalo Canada Click Yes if Unassisted: Yes Anesthesia Type: General and Peripheral nerve block Operative Notes Findings: Displaced intra-articular fracture involving the posterior malleolus.? Minimally displaced fracture involving the medial malleolus.? Displaced comminuted fracture involving the lateral malleolus was extension into the fibular shaft.? Displaced fragment involving the anterior lateral aspect of the distal tibia.? Unstable tibial talar joint. Closure Type: primary Applied: implant(s) (Arthrex 1/3 tubular plate, partially-threaded cannulated cancellous screw with washer, distal fibular plate 8 hole) Estimated Blood Loss (mL): 30 Tourniquet time (min): 115 Status at Discharge Cognitive/behavioral status at discharge: oriented Functional status at discharge: uses cane/walker Overall status at discharge: patient is progressing back to baseline Exam Vital Signs (past 8 hours): - 06/15/21 04:46 06/15/21 07:30 Temperature 98.3 F 98.6 F Pulse Rate 87 80 Respiratory Rate 16 18 Blood Pressure 156/74 H 150/74 H Pulse Oximetry 97 96 Oxygen Delivery Method Room Air Oxygen Flow Rate 0 Narrative Exam Narrative: Pleasant 80yo female, resting comfortably in bed, no actute distress. Dressing is C/D/I. Able to wiggle her toes, distally neurovascularly intact. Objective Labs Result Diagrams: 06/15/21 04:37 Labs: Laboratory Results - last 24 hr 06/15/21 04:37 WBC 12.3 H RBC 4.06 Hgb 12.0 Hct 36.6 MCV 90.1 MCH 29.6 MCHC 32.9 RDW 14.5 Plt Count 221 PFSH Medical History Closed trimalleolar fracture Surgical History History of mastectomy Social History household members: spouse Smoking Status: Never smoker alcohol intake: never Discharge Assessment & Plan Assessment and Plan Assessment: -stable s/p left ankle ORIF for trimalleolar fracture Plan of Treatment: -mobilize with Physical Therapy. Nonweight bearing left leg x6 weeks -continue with current pain regimen -Aspirin 81mg 2x/day [id number] for DVT prophylaxis -discharge to SNF today when cleared by PT. Patient has no help available at home (see HPI), and would be safer going to SNF Discharge Plan Discharge Plan Patient Disposition: SNF I certify the postop hospital nursing home care is medically necessary on a continuing basis for any conditions for which he/ she received care during this hospitalization.: Yes The receiving facility has agreed to accept transfer and provide medical treatment.: Yes Discharge orders & Medications Discharge Orders: Discharge (Order); Ordered 06/15/21 Ordered By: Dixie Gillespie Prescriptions: New hydroxyzine pamoate [Vistaril] 25 mg capsule 25 mg PO TID-QID PRN (Reason: spasms) Qty: 60 0RF acetaminophen 500 mg capsule 500 mg PO Q4H MDD max 3000mg/day PRN (Reason: fever or pain) Qty: 90 0RF aspirin 81 mg Tablet,Delayed Release (Dr/Ec) 81 mg PO BID 42 Days Qty: 84 0RF Rx Instructions: prevent blood clots docusate sodium 100 mg Capsule 100 mg PO BID Qty: 30 0RF oxycodone 5 mg Tablet 5 mg PO Q3HR PRN (Reason: Pain, Moderate (4-6)) Qty: 42 0RF polyethylene glycol 3350 17 gram Powder In Packet 17 g PO DAILY PRN (Reason: constipation) Qty: 30 0RF Discontinued oxycodone 5 mg tablet 5 mg PO Q6H PRN (Reason: pain) Qty: 20 0RF Rx Instructions: You may take 1-2 tabs every 6 hours as needed for pain. Follow up/Referrals: Chalo Canada MD [Physician] - (10-14 days for postop visit) Diet/Activity/Treatments Diet: Diet as Tolerated Activity: Nonweightbearing to left lower extremity Skin/Wound/Dressing Care Report to your healthcare provider any signs of infection, such as:: chills, fever, night sweats, unusual drainage and unusual redness Dressing: Keep dressing and splint clean and dry [facility] Reason for rehabilitation: Post-operative therapy Rehab type: Physical therapy and Occupational therapy Visit Report/Discharge Packet Instructions: DI for Open Reduction Internal Fixation Surgery Stand Alone Forms: Surgery Discharge Discharge Data Attending Provider: Chalo Canada
[2021-06-15 11:10] VITALS: BP 161/75; PULSE 79; RESP 18; TEMP 36.7; O2SAT 95
--- NOTE | 2021-06-15 11:35 | PT.IPTN ---
Current Diagnoses Other fracture of left lower leg, initial encounter for closed fracture (06/15/21) Other fracture of unspecified lower leg, initial encounter for closed fracture (06/15/21) Sprain of tibiofibular ligament of left ankle, initial encounter (06/15/21) Surgery Performed Operation Date: 06/14/21 07:45 Actual Procedures p ORIF trimalleolar ankle fx & fixation of syndesmosis(Left) - Chalo Canada MD Physical Therapy Treatment Note M2 PT-IP Current Condition Start: 06/14/21 15:23 Freq: NEEDED Status: Active Protocol: Document 06/14/21 14:00 AB (Rec: 06/14/21 15:58 AB [id number]) Physical Therapy Current Condition Current Condition Evaluation Date 06/14/21 Treatment Diagnosis L ankle fx s/p ORIF; difficulty in walking Onset Date 06/14/21 M3 PT-IP Subjective Start: 06/14/21 15:23 Freq: NEEDED Status: Active Protocol: Document 06/15/21 11:35 AB (Rec: 06/15/21 12:19 AB [id number]) Subjective Physical Therapy Visit Type Type Treatment Note Visit Start Time 11:35 Visit Stop Time 11:56 Total Visit Minutes 21 Number of DIRECTOR PRODUCT Visits 0 Physical Therapy Visit Comments Patient Comments agreeable to do PT Therapy Pain Assessment Pain When Pain Assessed At Rest Pain Present Pain Present Pain Reported Location Left Ankle Intensity 3 Scale Used increases to 5 with mobility Pain Management Techniques Distraction,Elevation, Modification of Treatment,Re- positioning,Timing of Activity with Medications M4 PT-IP Mobility and Gait Start: 06/14/21 15:23 Freq: NEEDED Status: Active Protocol: Document 06/15/21 11:35 AB (Rec: 06/15/21 12:19 AB [id number]) PT-Bed Mobility Assessment Supine to Sit Supine to Sit Standby Assistance Scooting Scooting to Edge of Bed Contact Guard Assistance PT-Transfer Assessment Sit to and From Stand Sit to and from Stand Minimal Assistance,1 Person Assistance,Use of Upper Extremities Equipment Transfer Assistive Device Gait Belt,Front Wheeled Walker Orthotic/Prosthetic Devices or Brace: Yes Transfers Transfer Destination Chair Transfer Technique Stand Step Pivot Transfer Ability Level of Assist Contact Guard Assistance, Minimal Assistance,1 Person Assistance,Use of Upper Extremities Comments Mobility Comments completed supine to sit SBA. initially stated that she needs assist to move her LLE to EOB. Pt educated and instructed on techniques to be able to move LE over the EOB without assistance and completed SBA with cues. able to sit on EOB SBA. completed sit to stand min A and cues. pt tends to pull on FWW to stand. completed step transfer to chair using FWW min A. Pt educated on safety and techniques for sit to stand. completed sit to stand from chair using armrests and without armrests(pushing from edge of the chair) x 4 reps requiring CGA to initial min A and cues. stated that she needs to elevate her LLE up due to increasing pain. positioned pt on chair. call light and table placed within reach. M5 PT-IP Objective Assessments Start: 06/14/21 15:23 Freq: NEEDED Status: Active Protocol: Document 06/14/21 14:00 AB (Rec: 06/14/21 15:58 [email or web address] Orientation Orientation/Cognition Level of Alertness Alert Orientation Name,Place,Situation Language Function Ability No Deficits Noted Safety Awareness Understands Safety Issues Memory Description No Deficits Noted Gross Range of Motion Lower Extremity ROM Impairments L ankle not tested: soft splint on Strength Lower Extremity Strength Assessment Left Impaired Hip 3+/5 Knee 3+/5 Ankle n/t Coordination Assessment Gross Coordination Gross Coordination WNL Sensation Assessment Sensation Gross Sensation Left LE Impaired Sensation Description Numbness Comments Sensation Comments still has numbness on L foot/ ankle Muscle Tone Muscle Tone WNL Yes M6 PT-IP Treatment Start: 06/14/21 15:23 Freq: NEEDED Status: Active Protocol: Document 06/15/21 11:35 AB (Rec: 06/15/21 12:19 [facility] Physical Therapy Treatment Education Education Provided Safety M7 PT-IP Assessment and Plan Start: 06/14/21 15:23 Freq: NEEDED Status: Active Protocol: Document 06/15/21 11:35 AB (Rec: 06/15/21 12:19 [facility] PT Summary Assessment and Plan Potential Rehabilitation Potential Good Summary Impairments Pain,ROM,Strength,Balance, Coordination,Sensation,Tone, Cognition,Bed Mobility, Transfers,Gait,Activity Tolerance Progress Towards Goals Slow Progress due to Activity Tolerance Assessment Summary pt requiring CGA to min A with mobility using FWW. Pt stated that her spouse found somebody who can install a ramp at home. d/c plan is SNF rehab to improve strength and mobility independence. Goals Bed Mobility Goal Independent Transfer Goal Independent,Front Wheeled Walker Gait Goal Independent,Front Wheel Walker Gait Distance 25 Other Goals up/down 1 step using FWW CGA Days to Meet Goals 10 Frequency of Treatment Frequency Of Treatment Once a Day Treatment Plan Physical Therapy Treatment Plan Bed Mobility Training,Transfer Training,Gait Training, Therapeutic Exercise,Balance Retraining,Post Op Education, Discharge Planning,Hot or Cold Pack,Neuromuscular Re-ed, Coordination Retraining,Manual Therapy Weight Bearing Status Weight Bearing Status Non-Weight Bearing Allowed Weight Bearing Amount (enter % LLE NWB or #) (%) Recommendations To Nursing Amount of Assist Needed 1 Person Assist Discharge Recommendations PT Discharge Recommendations SNF Rehab Transportation Needs at Discharge Private Vehicle,Wheelchair/ Cabulance
[2021-06-15 12:51] LABS: COVID19 -Nasal RAPID Negative (Negative)
--- NOTE | 2021-06-15 13:39 | CM.IDA ---
Initial DCP Assessment Note Pt is an 80 yo female, resident of [place], now POD#[address] Canada for prior GLF/Ankle fx. Non weightbearing left LE for 6 weeks PCP: Not Listed Payer: [employer] Received call from Cy BRANCH OPERATIONS SPECIALIST yesterday, asking for ideas to get this patient home safely ? Dr Canada stated patient was ready to DC home w/spouse. This was an outpatient procedure. This FIBERGLASS QUALITY TECHNICIAN explained that w/current caseload demands (06.14.21) and need for a DCP assessment before recommendations, this FIBERGLASS QUALITY TECHNICIAN could not properly assist while patient in the PACU Patient arrived yesterday via pov, driven by her spouse who patient reports has dementia. Patient has no friends or family members as support and no one aligned to assist she and spouse post operatively. Patient was inevitably admitted observation to the acute care floor for therapy evals and this FIBERGLASS QUALITY TECHNICIAN's consult. PT recommending SNF. Met w/patient, introduced role. Patient is the primary cg for spouse who has short term memory loss/Dementia. Patient has been mostly indp and active at baseline, until this fall and fx, patient had managed okay at home for the week between her fall and this scheduled procedure, admits it's been a bit tough for us, I haven't showered in a week Patient/spouse do not have much of a support network; spouse Ned is a part of a jain community and plans to attends meals at the [facility] next week. Patient does not have a cell phone or internet. We discussed meals on wheels, Home health services, in home caregivers, meal delivery options Patient requests SNF and states she can pay the deposit if SNF secured, asks to remain local Placed call to yareli Armas at [facility]; discussed and faxed referral. Faxed copy of [facility], completed and signed med list, DC Summary, C19 vx info to [facility] and patient was accepted for admission today 06.15.21 Plan: DC to [facility] via w/c today, p/u at 1230, C19 PCR updated and all ppk faxed to [facility]. Nurse report called by TEREZA Escobar MSW
== END 2021-06-15 12:30 | disposition home or self-care (01) ==
LOC: OR 11:47 → AC 11:47
PROVIDERS: Physician Assistant; Admitting Provider Orthopaedic Surgery; Referring Provider Orthopaedic Surgery; Visit Provider Orthopaedic Surgery
PROC: (CPT 27822; principal; 2021-06-14 07:45)
DX: S82.852A Displaced trimalleolar fracture of left lower leg, initial encounter for closed fracture (principal); S93.432A Sprain of tibiofibular ligament of left ankle, initial encounter; W01.0XXA Fall on same level from slipping, tripping and stumbling without subsequent striking against object, initial encounter; Z20.822 Contact with and (suspected) exposure to COVID-19; I48.91 Unspecified atrial fibrillation
CPT/HCPCS: 27822; 27829; 36415; 85027; 87635; 93005; 97162; 97530; C9803; G0378; C1713; J0171; J0690; J1100; J2250; J2405; J2704; J3010

== ENCOUNTER 2021-06-17 17:21 | Emergency (ER) | payer MEDICARE, OTHER, SELFPAY ==
[2021-06-14 17:10] VITALS: BMI 26.6
[2021-06-17] VITALS (10 sets, daily range): BP systolic 162–174; BP diastolic 71–87; PULSE 79–103; RESP 18–31; O2SAT 93–98
--- NOTE | 2021-06-17 17:44 | DI.RAD.S_ITS ---
PROCEDURE: XR ABDOMEN 1V INDICATIONS: abd pain, pt c/o constipation TECHNIQUE: One view of the abdomen acquired. COMPARISON: None. FINDINGS: Lower pelvis is not visualized and cannot be evaluated. Surgical changes and devices: None. Bowel: Bowel gas pattern is nonspecific where visualized. Soft tissues: No suspicious abdominal calcifications. Visualized solid organ contours appear normal in size. Multiple rounded radiodense foreign bodies project over the right lung base which may be external to the patient. Bones: No suspicious bony lesions. IMPRESSION: Nonspecific bowel gas pattern without definite obstruction. No significant fecal loading in the visualized bowel. Please note the lower pelvis is not visualized and cannot be evaluated. Dictated by: Stefanie Hutson MD, PhD on 06/17/2021 at 18:13 Approved by: Stefanie Hutson MD, PhD on 06/17/2021 at 18:14
[2021-06-17] MEDS: KETOROLAC 30 MG/ML VIAL 15 MG IV (18:01)
--- NOTE | 2021-06-17 18:09 | ED.ABDPAIN ---
HPI - Abdominal Pain General Chief Complaint: Abdominal Pain Stated Complaint: constipation Time Seen by Provider: 06/17/21 18:07 Source: patient and EMS Mode of arrival: EMS History of Present Illness HPI narrative: 80-year-old female nonsmoker presents with a chief complaint of lower abdominal cramping and discomfort with decreased bowel movements for the past few days. She is nauseated but denies any vomiting. She denies any obvious provocation or palliation of her discomfort. She states that she had recently been seen for fracture dislocation of her ankle and has been taking medications to help with her pain but also stool softeners which obviously are not working. Related Data Previous Rx's Medication Instructions Recorded hydroxyzine pamoate 25 mg capsule 25 mg PO TID-QID PRN #60 cap 06/14/21 (Vistaril) acetaminophen 500 mg capsule 500 mg PO Q4H PRN #90 cap MDD max 06/15/21 3000mg/day aspirin 81 mg tablet,delayed 81 mg PO BID 42 Days #84 tab 06/15/21 release docusate sodium 100 mg capsule 100 mg PO BID #30 cap 06/15/21 oxycodone 5 mg tablet 5 mg PO Q3HR PRN #42 tab 06/15/21 polyethylene glycol 3350 17 gram 17 g PO DAILY PRN #30 ea 06/15/21 oral powder packet Allergies Allergy/AdvReac Type Severity Reaction Status Date / Time No Known Drug Allergies Allergy Verified 06/17/21 17:29 Review of Systems Review of Systems Narrative: GENERAL: Denies chills, fatigue, malaise, fever, sweats. HEENT: Denies sinus pain, ear pain, sore throat, difficulty swallowing, dizziness. RESPIRATORY: Denies dyspnea, cough, wheezing, hemoptysis, sputum. CARDIOVASCULAR: Denies chest pain, palpitations, orthopnea, edema, GASTROINTESTINAL: See HPI : Denies dysuria, frequency, incontinence, hematuria, urinary retention. MUSCULOSKELETAL: denies weakness, joint pain, or bony pain SKIN: Denies rash, skin lesions, or other NEUROLOGIC: Denies weakness, headache, numbness, change in speech, confusion, seizures, incoordination. PSYCHIATRIC: No concerning psychosocial issues. 12 point review of systems is negative except for those stated above Patient History Medical History Closed trimalleolar fracture Surgical History History of mastectomy Social History household members: spouse Smoking Status: Never smoker alcohol intake: never Smoking Status: Never smoker Substance Use Type: does not use Exam Narrative Exam Narrative: GENERAL: [80] year old patient appears stated age. Well-developed patient, in mild distress. HEAD: Atraumatic. Normocephalic. EYES: Pupils equal round and reactive. Extraocular motions intact. No scleral icterus. No injection or drainage. ENT: Nose without bleeding, purulent drainage. Throat without erythema, tonsillar hypertrophy or exudate. Airway patent. NECK: Trachea midline. Non tender CARDIOVASCULAR: Regular rate and rhythm without murmurs, gallops, or rubs. RESPIRATORY: Clear to auscultation. Breath sounds equal bilaterally. No wheezes, rales, or rhonchi. GASTROINTESTINAL: Abdomen soft, non-tender, nondistended. RECTAL: large amount of firm stool in rectal vault, as much removed by myself as possible. Performed with nursing high school mathematics teacher at the bedside and patient's permission EXTREMITIES: No edema or joint tenderness. BACK: Nontender without deformity or crepitance. No flank tenderness. NEURO: AOx3. SKIN: No rash or erythema of visible areas Initial Vital Signs Initial Vital Signs: Vital Signs Pulse Rate 96 H 06/17/21 17:22 Respiratory Rate 18 06/17/21 17:22 Blood Pressure 174/87 H 06/17/21 17:22 Pulse Oximetry 95 06/17/21 17:22 Course Orders Ordered: ED Orders 06/17/21 17:35 Complete Blood Count AUTO DIFF Stat Comprehensive Metabolic Panel Stat Lipase Stat 06/17/21 17:44 XR abdomen 1V Stat 06/17/21 18:13 EKG-12 Lead Routine EKG-12 Lead Stat Discontinued Medications Bisacodyl (Bisacodyl 10 Mg Supp) 10 mg MN NOW ONE Stop: 06/17/21 19:08 Last Admin: 06/17/21 19:12 Dose: 10 mg Documented by: ATAYLOR Ketorolac Tromethamine (Ketorolac 30 Mg/Ml Vial) 15 mg IV NOW ONE Stop: 06/17/21 17:45 Last Admin: 06/17/21 18:01 Dose: 15 mg Documented by: KRISTY Mineral Oil (Mineral Oil 1 Each Enema) 1 each MN NOW ONE Stop: 06/17/21 19:44 Last Admin: 06/17/21 19:55 Dose: 1 each Documented by: KRISTY Vital Signs Vital signs: Vital Signs - 8 hr 06/17/21 17:22 06/17/21 17:30 06/17/21 18:00 Pulse Rate 92 H 92 H 94 H Respiratory Rate 21 25 H 31 H Blood Pressure 174/87 H 167/74 H 174/77 H Pulse Oximetry 96 95 93 06/17/21 18:30 06/17/21 18:31 06/17/21 19:00 Pulse Rate 79 79 79 Respiratory Rate 26 H 24 31 H Blood Pressure 162/71 H Pulse Oximetry 95 95 94 06/17/21 19:30 06/17/21 19:57 06/17/21 20:00 Pulse Rate 81 86 84 Respiratory Rate Blood Pressure 169/73 H Pulse Oximetry 93 95 96 06/17/21 20:36 Pulse Rate 103 H Respiratory Rate Blood Pressure Pulse Oximetry 98 MDM - Abdominal Pain Lab Data Result diagrams: 06/17/21 17:35 06/17/21 17:35 Labs: Lab Results 06/17/21 06/17/21 Range/Units 17:35 17:35 WBC 9.1 (4.5-11.0) X10^3/uL RBC 4.22 (4.0-5.2) X10^6/uL Hgb 12.9 (12.0-16.0) g/dL Hct 38.1 (36-46) % MCV 90.1 (80-100) fL MCH 30.4 (26-34) PG MCHC 33.8 (30-36) % RDW 14.7 (11.6-14.8) % Plt Count 276 (150-400) X10^3/uL Neut % (Auto) 80.6 H (50-75) % Lymph % (Auto) 9.4 L (25-40) % [place] % (Auto) 7.8 (3-14) % Eos % (Auto) 1.5 L (2-4) % Baso % (Auto) 0.7 (0-2) % Neut # (Auto) 7400 H (8080-2907) /uL Lymph # (Auto) 900 L (8106-8943) /uL [place] # (Auto) 700 (0-900) /uL Eos # (Auto) 100 (0-450) /uL Baso # (Auto) 100 (0-100) /uL Sodium 140 (137-145) mmol/L Potassium 3.7 (3.4-5.1) mmol/L Chloride 104 (98-107) mmol/L Carbon Dioxide 30 (22-32) mmol/L BUN 20 H (7-17) mg/dL Creatinine 0.58 (0.52-1.04) mg/dL Estimated GFR > 60.0 (>60) mL/min BUN/Creatinine Ratio 34.5 H (6-22) Glucose 135 H (80-110) mg/dL Calcium 8.8 (8.4-10.2) mg/dL Total Bilirubin 1.4 H (0.2-1.3) mg/dL AST 54 H (14-36) IU/L ALT 37 H (<35) IU/L Alkaline Phosphatase 61 (38-126) U/L Total Protein 7.2 (6.3-8.2) g/dL Albumin 4.1 (3.5-5.0) g/dL Globulin 3.1 (1.7-4.1) g/dL Albumin/Globulin Ratio 1.3 (1.0-2.8) Lipase 115 (23-300) U/L Imaging Data Abdominal x-ray: Radiologist's Impression: Launch?[address] [address] XRay Report Signed Patient: Aileen Jauregui MR#: [id number] : 1940 Acct:[id number] Age/Sex: 80 / F Date of Service: 06/17/21 Loc: ED Accession Number: [id number] ?? Procedure: XR abdomen 1V Ordering Provider: Nellie Gregorio D.O. PROCEDURE:? XR ABDOMEN 1V ? INDICATIONS:? abd pain, pt c/o constipation ? TECHNIQUE:? One view of the abdomen acquired.? ? COMPARISON:? None. ? FINDINGS:? Lower pelvis is not visualized and cannot be evaluated. ? Surgical changes and devices:? None.? ? Bowel:? Bowel gas pattern is nonspecific where visualized. ? Soft tissues:? No suspicious abdominal calcifications.? Visualized solid organ contours appear normal in size.? Multiple rounded radiodense foreign bodies project over the right lung base which may be external to the patient.? ? Bones:? No suspicious bony lesions.? ? IMPRESSION:? Nonspecific bowel gas pattern without definite obstruction.? No significant fecal loading in the visualized bowel.? Please note the lower pelvis is not visualized and cannot be evaluated.? ? ? Dictated by: Stefanie Hutson MD, PhD on 06/17/2021 at 18:13 ? ? Approved by: Stefanie Hutson MD, PhD on 06/17/2021 at 18:14 ? MDM Narrative Medical decision making narrative: Patient presents with increasing abdominal discomfort and decreasing bowel movements since being on pain medication for her recent orthopedic surgery. Her abdomen is soft but tender. X-ray demonstrates no sign of obstruction. Bowel sounds are present but decreased. Fecal impaction is noted and manual disimpaction performed followed by the use of Dulcolax and an enema. Patient produced a large stool in the department and felt significant improvement, if not complete. She is encouraged to continue good bowel habits with the use of stool softeners in an ongoing fashion for least 1 week and close follow-up with her primary care provider. She is given extensive return precautions and questions have been answered to her apparent satisfaction Discharge Plan Departure Patient Disposition: Home Clinical Impression: Abdominal pain, Constipation Instructions: DI for Constipation Activity Restrictions/Additional Instructions: *You have been diagnosed with [ abdominal pain due to constipation ]. Your history and physical exam are very reassuring and x-ray shows no sign of obstruction. I am thankful you feel much better but you will need to continue taking stool softeners and staying well hydrated for least the next week. *What to do: *Follow up with your primary care provider in 2-3 days, call for appointment *Return to ER if you should have any new, worsening or concerning symptoms *Drink plenty of water and eat foods high in fiber Prescriptions: No Action hydroxyzine pamoate [Vistaril] 25 mg capsule 25 mg PO TID-QID PRN (Reason: spasms) Qty: 60 0RF acetaminophen 500 mg capsule 500 mg PO Q4H MDD max 3000mg/day PRN (Reason: fever or pain) Qty: 90 0RF aspirin 81 mg Tablet,Delayed Release (Dr/Ec) 81 mg PO BID 42 Days Qty: 84 0RF Rx Instructions: prevent blood clots docusate sodium 100 mg Capsule 100 mg PO BID Qty: 30 0RF oxycodone 5 mg Tablet 5 mg PO Q3HR PRN (Reason: Pain, Moderate (4-6)) Qty: 42 0RF polyethylene glycol 3350 17 gram Powder In Packet 17 g PO DAILY PRN (Reason: constipation) Qty: 30 0RF
[2021-06-17 19:06] LABS: Add Manual Diff / Slide Review NO; Basophils Absolute Auto 100 /uL (0-100); Basophils Percent Auto 0.7 % (0-2); Eosinophils Absolute Auto 100 /uL (0-450); Eosinophils Percent Auto 1.5 % (2-4); Hematocrit 38.1 % (36-46); Hemoglobin 12.9 g/dL (12.0-16.0); Lymphocytes Absolute Auto 900 /uL (1100-4500); Lymphocytes Percent Auto 9.4 % (25-40); Mean Corpuscular HGB Conc 33.8 % (30-36); Mean Corpuscular Hemoglobin 30.4 PG (26-34); Mean Corpuscular Volume 90.1 fL (80-100); Monocytes Absolute Auto 700 /uL (0-900); Monocytes Percent Auto 7.8 % (3-14); Neutrophils Absolute Auto 7400 /uL (1500-7000); Neutrophils Percent Auto 80.6 % (50-75); Platelet Count 276 X10^3/uL (150-400); Red Blood Cell Count 4.22 X10^6/uL (4.0-5.2); Red Cell Distribution Width 14.7 % (11.6-14.8); White Blood Cell Count 9.1 X10^3/uL (4.5-11.0)
[2021-06-17] MEDS: BISACODYL 10 MG SUPP PR (19:12)
[2021-06-17 19:23] LABS: Alanine Aminotransferase 37 IU/L (<35); Albumin 4.1 g/dL (3.5-5.0); Albumin Globulin Ratio 1.3 (1.0-2.8); Alkaline Phosphatase 61 U/L (38-126); Aspartate Aminotransferase 54 IU/L (14-36); BUN Creatinine Ratio 34.5 (6-22); Bilirubin Total 1.4 mg/dL (0.2-1.3); Blood Urea Nitrogen 20 mg/dL (7-17); Calcium 8.8 mg/dL (8.4-10.2); Carbon Dioxide 30 mmol/L (22-32); Chloride 104 mmol/L (98-107); Estimated Glomerular Filt Rate > 60.0 mL/min (>60); Globulin 3.1 g/dL (1.7-4.1); Glucose 135 mg/dL (80-110); HEMOLYSIS < 15 (0-50); Lipase 115 U/L (23-300); Potassium 3.7 mmol/L (3.4-5.1); Sodium 140 mmol/L (137-145); Total Protein 7.2 g/dL (6.3-8.2)
[2021-06-17] MEDS: MINERAL OIL 1 EACH ENEMA PR (19:55)
--- NOTE | 2021-06-17 20:35 | PC.NURSE ---
Pt assisted up to bedside commode, had large, soft, brown bowel movement. Pt reports relief and denies pain.
== END 2021-06-17 21:31 | disposition home or self-care (01) ==
PROVIDERS: Emergency Medicine; Emergency Provider Emergency Medicine
DX: K59.00 Constipation, unspecified (principal)
CPT/HCPCS: 36415; 74018; 80053; 83690; 85025; 93005; 96374; 99284; J1885

== ENCOUNTER → 2021-06-27 15:58 | Outpatient (CLI) | payer MEDICARE, OTHER, SELFPAY ==
[2021-06-14 17:10] VITALS: BMI 26.6
--- NOTE | 2021-06-27 | DI.US.S_ITS ---
PROCEDURE: US PERIPH VENOUS LOW EXTREM LT INDICATIONS: LEFT CALF SWELLING, PAIN TECHNIQUE: Real-time imaging, as well as color and pulse Doppler interrogation, were performed of the lower extremity deep veins from the inguinal ligament to the popliteal fossa. COMPARISON: None. FINDINGS: The common femoral, femoral and popliteal veins are normally compressible, and free of intraluminal thrombus. Color and pulse Doppler demonstrate normal phasic intraluminal flow. There is normal augmentation response to distal compression maneuver. IMPRESSION: No sonographic evidence of DVT. Dictated by: Shahram Singh M.D. on 06/27/2021 at 16:37 Approved by: Shahram Singh M.D. on 06/27/2021 at 16:38
== END ==
PROVIDERS: Referring Provider Physician Assistant; Visit Provider Physician Assistant
DX: M79.662 Pain in left lower leg (principal); M79.89 Other specified soft tissue disorders
CPT/HCPCS: 93971

== ENCOUNTER → 2021-10-01 12:10 | Outpatient (CLI) | payer MEDICARE, OTHER, SELFPAY ==
[2021-06-14 17:10] VITALS: BMI 26.6
[2021-10-01 12:44] LABS: COVID19 -Nasal RAPID Negative (Negative)
== END ==
PROVIDERS: Referring Provider Orthopaedic Surgery; Visit Provider Orthopaedic Surgery
DX: Z20.822 Contact with and (suspected) exposure to COVID-19 (principal)
CPT/HCPCS: 87635; C9803

== ENCOUNTER 2021-10-03 06:07 | Day surgery (SDC) | payer MEDICARE, OTHER, SELFPAY ==
[2021-06-14 17:10] VITALS: BMI 26.6
[2021-10-03] VITALS (8 sets, daily range): BP systolic 165–191; BP diastolic 78–87; PULSE 77–88; RESP 14–22; TEMP 35.8–37.1; O2SAT 93–98
[2021-10-03] MEDS: LACTATED RINGERS 1,000 ML 84 ML IV (07:21)
--- NOTE | 2021-10-03 07:24 | SUR.PREOP ---
10/03/[id number] hand ring taped wit yony -turned finger purple. removed tape,finger returned to normal. patient adamant-leave tape off. patient has had on for 60 years/unable to remove.
--- NOTE | 2021-10-03 07:42 | PM.PREOP ---
Pre-operative Note Interval Note History & Physical reviewed/Exam performed by Physician: Yes Changes to H&P: No
[2021-10-03] MEDS: CEFAZOLIN 2 GM/20 ML SYRINGE IV (08:10)
[2021-10-03] MEDS: BUPIVACAINE 0.25% (PF) 30 ML, EPINEPHrine 0.15 MG INJ (08:14)
--- NOTE | 2021-10-03 08:25 | SUR.OPER ---
Supine on padded OR bed, head on pillow, arms secured on padded arm boards at <90 degrees abduction, legs uncrossed, safety belt at thigh, tape over blanket over lower legs.
--- NOTE | 2021-10-03 08:58 | P.OP_ITS ---
Operative Date/Time/Diagnoses Date of procedure: 10/03/21 Time of procedure: 08:00 Pre-op diagnosis: Left ankle fracture with signs of swelling and painful implant Post-op diagnosis: same Procedure & Clinicians Procedure: Irrigation and debridement of the left ankle as well as removal of implants. Same procedure as scheduled: Yes Indications: Systematic implants as well as some signs of swelling to the left ankle Surgeon: Chalo Canada Click Yes if Unassisted: Yes Anesthesia Type: General Operative Notes Findings: No sign of any infectious process. No sign of any purulence or fluid colle ctions. No sign of any nonunion or malunion at the distal fibula. No sign of any implant loosening or failure. Closure Type: primary Estimated Blood Loss (mL): 5 Tourniquet time (min): 28 Procedure in detail: On date of service, patient was met in the holding area where her operative site was signed and witnessed by the OR staff. Surgeries once again discussed with the patient and any remaining questions or concerns she had were answered fully. Patient was taken back to the operating theater. Placed on the operating table in a supine position. Great care was taken to ensure that all bony prominences were appropriately padded. Well-padded tourniquet was placed up along the left leg. Time-out was performed verifying patient's name, procedure, and operative site. Left leg was prepped and draped in normal sterile fashion. Esmarch was used to exsanguinate the limb and the tourniquet was turned up to 250 mm of mercury. Ten blade was used to incise through skin and fascial tissue. An incision was made starting at the tip of the distal fibula and extending proximally. Deep knife was used to continue sharp dissection down to the periosteum of the distal fibula. This gave us good visualization of the plate. As mentioned above no sign of any fluid collections or infectious process. No sign of any nonunion or malunion. No sign of any implant loosening or failure. Curette was used to debride the soft tissue along the open wound. Irrigation was used to clean up any remaining debrided soft tissue. Fifteen blade was used to sharply incise the tissue over the plate given its good visualization of the distal fibular plate. Screws and plate were removed. Curette was then used to debride the distal fibula. No sign of any motion at the healed fracture site.: Underwent copious irrigation. The wound was then copiously irrigated. It was closed in layered fashion. Patient's leg was cleaned, dried, and dressed. Patient was extubated and taken to the PACU in stable condition. Complications: none Post-operative Condition: stable Disposition: PACU Plan for aftercare: Patient can weight bear as tolerated.
[2021-10-03] MEDS: OXYCODONE/ACETAMINOPHEN 5/325 TABLET 1 TAB PO (09:09)
== END 2021-10-03 10:00 | disposition home or self-care (01) ==
PROVIDERS: Referring Provider Orthopaedic Surgery; Visit Provider Orthopaedic Surgery
PROC: (CPT 20680; principal; 2021-10-03 07:45)
DX: T84.84XA Pain due to internal orthopedic prosthetic devices, implants and grafts, initial encounter (principal); S82.852D Displaced trimalleolar fracture of left lower leg, subsequent encounter for closed fracture with routine healing; I48.91 Unspecified atrial fibrillation
CPT/HCPCS: 20680; J0171; J0690; J1100; J2405; J2704; J3010

== ENCOUNTER → 2021-10-28 12:58 | Outpatient (CLI) | payer MEDICARE, OTHER, SELFPAY ==
[2021-06-14 17:10] VITALS: BMI 26.6
== END ==
PROVIDERS: Referring Provider Physician Assistant Medical; Visit Provider Family Medicine
DX: T81.31XA Disruption of external operation (surgical) wound, not elsewhere classified, initial encounter (principal); S82.852S Displaced trimalleolar fracture of left lower leg, sequela; L03.116 Cellulitis of left lower limb; R60.0 Localized edema; Z74.09 Other reduced mobility
CPT/HCPCS: 11042; 87070; 87075; 87077; 87186; 87205; 99204; 99213

== ENCOUNTER → 2021-10-30 11:25 | Outpatient (CLI) | payer MEDICARE, OTHER, SELFPAY ==
[2021-06-14 17:10] VITALS: BMI 26.6
== END ==
PROVIDERS: Visit Provider Family Medicine
DX: T81.89XA Other complications of procedures, not elsewhere classified, initial encounter (principal); S91.002A Unspecified open wound, left ankle, initial encounter; R60.0 Localized edema
CPT/HCPCS: 29580

== ENCOUNTER → 2021-11-12 13:58 | Outpatient (CLI) | payer MEDICARE, OTHER, SELFPAY ==
[2021-06-14 17:10] VITALS: BMI 26.6
== END ==
PROVIDERS: Referring Provider Physician Assistant Medical; Visit Provider Family Medicine
DX: T81.31XA Disruption of external operation (surgical) wound, not elsewhere classified, initial encounter (principal); S82.852S Displaced trimalleolar fracture of left lower leg, sequela; R60.0 Localized edema; L03.116 Cellulitis of left lower limb; B96.5 Pseudomonas (aeruginosa) (mallei) (pseudomallei) as the cause of diseases classified elsewhere; B95.62 Methicillin resistant Staphylococcus aureus infection as the cause of diseases classified elsewhere; B95.2 Enterococcus as the cause of diseases classified elsewhere; B96.4 Proteus (mirabilis) (morganii) as the cause of diseases classified elsewhere; Z74.09 Other reduced mobility
CPT/HCPCS: 11042; 11045; 97605; 99213

== ENCOUNTER → 2021-11-15 11:48 | Outpatient (CLI) | payer MEDICARE, OTHER, SELFPAY ==
[2021-06-14 17:10] VITALS: BMI 26.6
== END ==
PROVIDERS: Referring Provider Physician Assistant Medical; Visit Provider Nurse Practitioner Family
DX: T81.89XA Other complications of procedures, not elsewhere classified, initial encounter (principal); S91.002A Unspecified open wound, left ankle, initial encounter; R60.0 Localized edema
CPT/HCPCS: 29581

== ENCOUNTER → 2021-11-19 15:10 | Outpatient (CLI) | payer MEDICARE, OTHER, SELFPAY ==
[2021-06-14 17:10] VITALS: BMI 26.6
== END ==
PROVIDERS: Visit Provider Family Medicine
DX: T87.81 Dehiscence of amputation stump (principal); S91.002A Unspecified open wound, left ankle, initial encounter; R60.0 Localized edema; L08.89 Other specified local infections of the skin and subcutaneous tissue
CPT/HCPCS: 11042; 99214

== ENCOUNTER → 2021-11-26 14:07 | Outpatient (CLI) | payer MEDICARE, OTHER, SELFPAY ==
[2021-06-14 17:10] VITALS: BMI 26.6
== END ==
PROVIDERS: Visit Provider Family Medicine
DX: T81.31XA Disruption of external operation (surgical) wound, not elsewhere classified, initial encounter (principal); L08.89 Other specified local infections of the skin and subcutaneous tissue; R60.0 Localized edema; M25.572 Pain in left ankle and joints of left foot; I10 Essential (primary) hypertension
CPT/HCPCS: 11042; 99213

== ENCOUNTER → 2021-12-10 14:04 | Outpatient (CLI) | payer MEDICARE, OTHER, SELFPAY ==
[2021-06-14 17:10] VITALS: BMI 26.6
== END ==
PROVIDERS: Visit Provider Family Medicine
DX: T81.31XA Disruption of external operation (surgical) wound, not elsewhere classified, initial encounter (principal); R60.0 Localized edema
CPT/HCPCS: 11042

== ENCOUNTER → 2021-12-24 15:42 | Outpatient (CLI) | payer MEDICARE, OTHER, SELFPAY ==
[2021-06-14 17:10] VITALS: BMI 26.6
== END ==
PROVIDERS: Visit Provider Family Medicine
DX: T81.31XA Disruption of external operation (surgical) wound, not elsewhere classified, initial encounter (principal); R60.0 Localized edema
CPT/HCPCS: 11042

== ENCOUNTER → 2022-01-14 13:46 | Outpatient (CLI) | payer MEDICARE, OTHER, SELFPAY ==
[2021-06-14 17:10] VITALS: BMI 26.6
== END ==
PROVIDERS: Referring Provider Physician Assistant Medical; Visit Provider Family Medicine
DX: S91.002A Unspecified open wound, left ankle, initial encounter (principal); T81.31XA Disruption of external operation (surgical) wound, not elsewhere classified, initial encounter; R60.0 Localized edema
CPT/HCPCS: 97597; 99212

== ENCOUNTER → 2022-01-28 13:59 | Outpatient (CLI) | payer MEDICARE, OTHER, SELFPAY ==
[2021-06-14 17:10] VITALS: BMI 26.6
== END ==
PROVIDERS: Visit Provider Family Medicine
DX: S91.002A Unspecified open wound, left ankle, initial encounter (principal); R60.0 Localized edema; T81.31XA Disruption of external operation (surgical) wound, not elsewhere classified, initial encounter; L08.9 Local infection of the skin and subcutaneous tissue, unspecified
CPT/HCPCS: 11042; 87070; 87075; 87077; 87186; 87205; 99214

== ENCOUNTER → 2022-02-04 13:06 | Outpatient (CLI) | payer MEDICARE, OTHER, SELFPAY ==
[2021-06-14 17:10] VITALS: BMI 26.6
== END ==
PROVIDERS: Referring Provider Physician Assistant Medical; Visit Provider Family Medicine
DX: S91.002A Unspecified open wound, left ankle, initial encounter (principal); T85.698A Other mechanical complication of other specified internal prosthetic devices, implants and grafts, initial encounter; R60.0 Localized edema; L08.9 Local infection of the skin and subcutaneous tissue, unspecified; B96.5 Pseudomonas (aeruginosa) (mallei) (pseudomallei) as the cause of diseases classified elsewhere
CPT/HCPCS: 11042; 99213

== ENCOUNTER → 2022-02-18 12:48 | Outpatient (CLI) | payer MEDICARE, OTHER, SELFPAY ==
[2021-06-14 17:10] VITALS: BMI 26.6
== END ==
PROVIDERS: Referring Provider Physician Assistant Medical; Visit Provider Family Medicine
DX: S91.002A Unspecified open wound, left ankle, initial encounter (principal); T81.31XA Disruption of external operation (surgical) wound, not elsewhere classified, initial encounter; R60.0 Localized edema; L24.89 Irritant contact dermatitis due to other agents
CPT/HCPCS: 11042; 99213

== ENCOUNTER → 2022-03-04 12:57 | Outpatient (CLI) | payer MEDICARE, OTHER, SELFPAY ==
[2021-06-14 17:10] VITALS: BMI 26.6
== END ==
PROVIDERS: Referring Provider Physician Assistant Medical; Visit Provider Surgery
DX: S91.002A Unspecified open wound, left ankle, initial encounter (principal); T81.31XA Disruption of external operation (surgical) wound, not elsewhere classified, initial encounter; R60.0 Localized edema; R21 Rash and other nonspecific skin eruption
CPT/HCPCS: 97597

== ENCOUNTER 2022-05-26 08:41 | Emergency (ER) | payer MEDICARE, OTHER, SELFPAY ==
[2021-06-14 17:10] VITALS: BMI 26.6
[2022-05-26 08:56] VITALS: BP 194/110; PULSE 94; RESP 16; TEMP 37; O2SAT 98; BMI 23.3
--- NOTE | 2022-05-26 09:16 | ED.LOWEXIN ---
HPI - Extremity Injury (Lower) General Chief Complaint: Extremity Injury, Lower Stated Complaint: extreme pain LT leg T-7 Time Seen by Provider: 05/26/22 09:12 Source: patient Mode of arrival: Family Vehicle History of Present Illness HPI Narrative: Patient is an 81-year-old female. Approximately 1 year ago she sustained an injury to her left ankle requiring surgery. She is had a couple surgeries on it afterwards have hardware removed. She then had issues with a nonhealing wound. Was on multiple antibiotics. Was seen by wound care. She states that she finished her last course of antibiotics a couple weeks ago. For the past week she is noticed pain up in her left knee and her left thigh. She states that the skin over her left ankle in her left ankle itself is actually continuing to improve. She reports no new trauma. No chest pain. No shortness of breath. No fevers. She is concerned about blood clot in her leg. She is still able to ambulate although is limping. Related Data Previous Rx's Medication Instructions Recorded acetaminophen 500 mg capsule 500 mg PO Q4H PRN fever or pain 06/15/21 #90 caps hydrocodone 5 mg-acetaminophen 325 2 tab PO Q4-6H PRN pain #40 tabs 10/03/21 mg tablet hydroxyzine pamoate 25 mg capsule 25 mg PO TID-QID PRN spasms #60 10/03/21 (Vistaril) caps furosemide 20 mg tablet (Lasix) 20 mg PO DAILY PRN edema #14 tabs 05/26/22 Allergies Allergy/AdvReac Type Severity Reaction Status Date / Time No Known Drug Allergies Allergy Verified 05/26/22 08:59 Review of Systems Cardiovascular Cardiovascular: Reports system reviewed and no additional complaints, except as documented Respiratory Respiratory: Reports system reviewed and no additional complaints, except as documented Gastrointestinal Gastrointestinal: Reports system reviewed and no additional complaints, except as documented Integumentary/Breasts Skin/Breast: Reports system reviewed and no additional complaints, except as documented Neurologic Neurologic: Reports system reviewed and no additional complaints, except as documented Hematologic/Lymphatic On Anticoagulants: No Patient History Medical History Closed trimalleolar fracture Surgical History History of mastectomy History of open reduction and internal fixation (ORIF) procedure (06/14/21) Social History household members: spouse Smoking Status: Never smoker alcohol intake: never Smoking Status: Never smoker Substance Use Type: does not use Exam Initial Vital Signs Initial Vital Signs: Vital Signs Temperature 98.6 F 05/26/22 08:56 Pulse Rate 94 H 05/26/22 08:56 Respiratory Rate 16 05/26/22 08:56 Blood Pressure 194/110 H 05/26/22 08:56 Pulse Oximetry 98 05/26/22 08:56 Oxygen Delivery Method 05/26/22 08:56 Const General: cooperative, comfortable and No ill appearing HENMT Head: normal to inspection and normocephalic Resp Effort & Inspection: normal respiratory effort Cardio Rate: regular rate Skin Other: Some redness over the incision site of the lateral aspect of the left ankle. There is no fluctuance. No drainage. Extrem Other: Vague tenderness to palpation throughout the left knee in the left thigh. Patient is able to bend the knee and flex the hip without much discomfort. No effusion noted. Course Orders Ordered: ED Orders 05/26/22 09:17 US periph venous low extrem lt Stat Vital Signs Vital signs: Vital Signs - 8 hr 05/26/22 08:56 Temperature 98.6 F Pulse Rate 94 H Respiratory Rate 16 Blood Pressure 194/110 H Pulse Oximetry 98 Oxygen Delivery Method Room Air MDM - Extremity Injury (Lower) Imaging Data US - DVT: Radiologist's Impression: [place] [address] Ultrasound Report Signed Patient: Aileen Jauregui MR#: [id number] : 1940 Acct:[id number] Age/Sex: 81 / F Date of Service: 05/26/22 Loc: ED Accession Number: [id number] ?? Procedure: US periph venous low extrem lt Ordering Provider: Lenin Faria D.O. PROCEDURE:? US PERIPH VENOUS LOW EXTREM LT ? INDICATIONS:? PAIN ? TECHNIQUE:? Real-time imaging, as well as color and pulse Doppler interrogation, were performed of the lower extremity deep veins from the inguinal ligament to the popliteal fossa.? ? COMPARISON:? [facility], US PERIPH VENOUS LOW EXTREM LT, 06/27/2021, 16:18. ? FINDINGS:? The common femoral, femoral and popliteal veins are normally compressible, and free of intraluminal thrombus.? Color and pulse Doppler demonstrate normal phasic intraluminal flow.? There is normal augmentation response to distal compression maneuver. ? There is edema from the left popliteal fossa to the ankle.? ? IMPRESSION:? Negative left lower extremity duplex venous ultrasound for DVT. ? ? Dictated by: Richard Chacko M.D. on 05/26/2022 at 9:51 ? ? Approved by: Richard Chacko M.D. on 05/26/2022 at 9:54 MDM Narrative Medical decision making narrative: Patient's physical exam today is not consistent with cellulitis. Not consistent with fracture. Not consistent with compartment syndrome. There was no DVT noted on the exam. Potential soft tissue injury although not convinced this based on her exam today. Patient not in heart failure. Reassured patient that workup here in the emergency department is unremarkable. Advised that she contact her primary doctor for follow-up. She was given return precautions. She expressed understanding and agreement. Discharge Plan Departure Patient Disposition: Home Clinical Impression: Edema, Left leg pain Instructions: DI for Leg Pain, DI for Peripheral Edema -- Bilateral Activity Restrictions/Additional Instructions: It is important that you make contact with the primary doctor. You can contact the [address] [place] [address] Clinic at [phone]. You can also contact the [facility] at [phone]. Use the Lasix as needed if you experienced swelling in your lower extremities. Return to the emergency department for new symptoms. Prescriptions: New furosemide [Lasix] 20 mg tablet 20 mg PO DAILY PRN (Reason: edema) Qty: 14 0RF No Action acetaminophen 500 mg capsule 500 mg PO Q4H MDD max 3000mg/day PRN (Reason: fever or pain) Qty: 90 0RF hydrocodone-acetaminophen 5-325 mg tablet 2 tab PO Q4-6H PRN (Reason: pain) Qty: 40 0RF hydroxyzine pamoate [Vistaril] 25 mg capsule 25 mg PO TID-QID PRN (Reason: spasms) Qty: 60 0RF Referrals: Miscellaneous,Doctor, [Primary Care Provider] - Stand Alone Forms: Patient Portal/API
--- NOTE | 2022-05-26 09:17 | DI.US.S_ITS ---
PROCEDURE: US [facility] VENOUS LOW EXTREM LT INDICATIONS: PAIN TECHNIQUE: Real-time imaging, as well as color and pulse Doppler interrogation, were performed of the lower extremity deep veins from the inguinal ligament to the popliteal fossa. COMPARISON: [facility], [facility] VENOUS LOW EXTREM LT, 06/27/2021, 16:18. FINDINGS: The common femoral, femoral and popliteal veins are normally compressible, and free of intraluminal thrombus. Color and pulse Doppler demonstrate normal phasic intraluminal flow. There is normal augmentation response to distal compression maneuver. There is edema from the left popliteal fossa to the ankle. IMPRESSION: Negative left lower extremity duplex venous ultrasound for DVT. Dictated by: Richard Chacko M.D. on 05/26/2022 at 9:51 Approved by: Richard Chacko M.D. on 05/26/2022 at 9:54
--- NOTE | 2022-05-26 09:28 | PC.NURSE ---
Patient denies any new injury or trauma. Patient reports new left thigh pain over the last several days. Pain radiates from thigh down to foot. Reports baseline swelling in lower extremities. Worse on left than right. No obvious bruising noted. CMS intact, +2 pedal edema noted.
[2022-05-26 10:45] VITALS: BP 193/92; PULSE 84; RESP 18; O2SAT 95
[2022-05-26 10:47] VITALS: BP 193/91; PULSE 72; O2SAT 94
== END 2022-05-26 10:51 | disposition home or self-care (01) ==
PROVIDERS: Emergency Provider Emergency Medicine
DX: R60.0 Localized edema (principal); M79.605 Pain in left leg
CPT/HCPCS: 93971; 99283